=== PATIENT | female | born 1965 | race Hispanic/Latino ===

== ENCOUNTER 2017-12-20 21:36 | Emergency (ER) | payer SELFPAY ==
[2017-12-20 22:07] LABS: APPEARANCE,URINE Clear (CLEAR); BILIRUBIN,URINE Negative (NEGATIVE); COLOR,URINE Yellow (YELLOW); GLUCOSE, URINE (UA) Negative (NEGATIVE); KETONES,URINE Negative (NEGATIVE); LEUKOCYTE ESTERASE ,URINE Small (NEGATIVE); NITRATE,URINE Positive (NEGATIVE); OCCULT BLOOD,URINE Negative (NEGATIVE); PH,URINE 6.5 (5.0-8.0); PROTEIN,URINE Negative (NEGATIVE)
[2017-12-20] MEDS ORDERED: ACETAMINOPHEN-CODEINE 300/30MG TAB ONE (22:08)
[2017-12-20 22:09] LABS: BASOPHILS % (AUTO) 0.7 % (0.0-5.0); EOSINOPHILS % (AUTO) 3.3 % (0.0-8.0); HEMATOCRIT 38.8 % (36-48); LYMPHOCYTES % (AUTO) 37.5 % (21.0-51.0); MEAN CORPUSCULAR HEMOGLOBIN 32.5 pg (27.0-33.0); MEAN CORPUSCULAR HGB CONC 35.2 g/dL (32.0-36.0); MEAN CORPUSCULAR VOLUME 92.1 fL (79-99); NEUTROPHILS % (AUTO) 51.5 % (40.0-77.0); NUCLEATED RED BLOOD CELLS 0.1 % (0.0-0.19); PLATELET COUNT (AUTO) 273 K/uL (130-400); RED BLOOD CELL COUNT(AUTO) 4.21 MIL/uL (4.00-5.50); RED CELL DISTRIBUTION WIDTH 12.8 % (11.0-15.5)
[2017-12-20 22:12] LABS: RBC,URINE None Seen /HPF (0-1)
[2017-12-20 22:13] LABS: BACTERIA,URINE Many /HPF (None Seen); SQUAMOUS EPITHELIAL CELL,UR 0-2 /HPF (0-2)
[2017-12-20 22:18] LABS: CREATININE 0.9 mg/dL (0.5-1.5); POTASSIUM 4.1 mmol/L (3.5-5.1)
[2017-12-20 22:22] LABS: ALBUMIN 3.9 g/dL (3.5-5.0); BILIRUBIN,TOTAL 0.2 mg/dL (0.2-1.0); TOTAL PROTEIN, SERUM 7.8 g/dL (6.0-8.3)
[2017-12-20] MEDS ORDERED: IBUPROFEN 400 MG TABLET ONE (22:52)
[2017-12-20] MEDS ORDERED: ONDANSETRON ODT 4 MG TAB ONE (22:52)
== END 2017-12-20 23:29 | disposition home or self-care (01) ==
LOC: EDH 21:36
DX: N39.0 Urinary tract infection, site not specified (principal); M54.30 Sciatica, unspecified side
CPT/HCPCS: 36415; 80053; 81001; 83690; 85025

== ENCOUNTER 2018-08-22 15:01 | Inpatient (IN) | payer SELFPAY ==
[~2018-08-22] VITALS: Ht 154.9 cm; Wt 78.7 kg
[2018-08-22] MEDS ORDERED: METHYLPREDNISOLONE SOD SUCC 125MG/2ML VIAL ONE (15:32)
[2018-08-22] MEDS ORDERED: CEFTRIAXONE SODIUM 1 GM ONE (15:32)
[2018-08-22] MEDS ORDERED: AZITHROMYCIN 500MG+NS 250ML 250 ML IV ONE (15:32)
[2018-08-22] MEDS ORDERED: SODIUM CHLORIDE 0.9% 50 ML IV ONE (15:33)
[2018-08-22] MEDS ORDERED: ACETAMINOPHEN EXTRA STRENGTH 500 MG TABLET ONE (15:33)
[2018-08-22] MEDS ORDERED: IPRATROPIUM/ALBUTEROL SULFATE 3 ML SOLUTION IH ONE (15:39)
[2018-08-22 15:40] LABS: BASOPHILS % (AUTO) 0.3 % (0.0-5.0); EOSINOPHILS % (AUTO) 0.2 % (0.0-8.0); HEMATOCRIT 42.5 % (36-48); LYMPHOCYTES % (AUTO) 7.7 % (21.0-51.0); MEAN CORPUSCULAR HEMOGLOBIN 31.3 pg (27.0-33.0); MEAN CORPUSCULAR HGB CONC 33.9 g/dL (32.0-36.0); MEAN CORPUSCULAR VOLUME 92.4 fL (79-99); MONOCYTES % (AUTO) 7.7 % (3.0-13.0); NEUTROPHILS % (AUTO) 84.1 % (40.0-77.0); PLATELET COUNT (AUTO) 163 K/uL (130-400); RED CELL DISTRIBUTION WIDTH 12.9 % (11.0-15.5)
[2018-08-22 15:52] LABS: CREATININE 0.9 mg/dL (0.5-1.5); POTASSIUM 3.7 mmol/L (3.5-5.1)
[2018-08-22 15:54] LABS: INR 0.95 (0.85-1.15); PARTIAL THROMBOPLASTIN TIME 31.6 SEC (26.3-35.5)
[2018-08-22 15:57] LABS: BILIRUBIN,TOTAL 0.4 mg/dL (0.2-1.0); TOTAL PROTEIN, SERUM 7.7 g/dL (6.0-8.3)
[2018-08-22 16:11] LABS: CREATINE KINASE, TOTAL 134 U/L (21-232); MYOGLOBIN 36 ng/mL (10-92); TROPONIN I < 0.04 ng/mL (0.00-0.06)
[2018-08-22 16:20] LABS: APPEARANCE,URINE Clear (CLEAR); BILIRUBIN,URINE Negative (NEGATIVE); COLOR,URINE Yellow (YELLOW); GLUCOSE, URINE (UA) Negative (NEGATIVE); KETONES,URINE 15 mg/dL (NEGATIVE); LEUKOCYTE ESTERASE ,URINE Small (NEGATIVE); NITRATE,URINE Negative (NEGATIVE); OCCULT BLOOD,URINE Negative (NEGATIVE); PROTEIN,URINE Negative (NEGATIVE)
[2018-08-22 16:29] LABS: BACTERIA,URINE Moderate /HPF (None Seen); RBC,URINE 0-1 /HPF (0-1); SQUAMOUS EPITHELIAL CELL,UR Rare /HPF (0-2)
[2018-08-22] MEDS ORDERED: SODIUM CHLORIDE 0.9% 1000ML 1,000 ML IV ONE (17:07)
[2018-08-22] MEDS ORDERED: IBUPROFEN 800 MG TAB ONE (17:07)
[2018-08-22] MEDS ORDERED: ALBUTEROL SULFATE 0.083% 2.5 MG/3 ML INH IH ONE ×2 (17:34→21:13)
[2018-08-22] MEDS ORDERED: GUAIFENESIN-CODEINE 5 ML SYRUP PO PRN (19:00)
[2018-08-22] MEDS ORDERED: ACETAMINOPHEN 325 MG TAB PO PRN (19:00)
[2018-08-22] MEDS: METHYLPREDNISOLONE SOD SUCC 125MG/2ML VIAL IV SCH (19:00)
[2018-08-22 19:35] VITALS: BP 131/69
[2018-08-22] MEDS: ALBUTEROL SULFATE 0.083% 2.5 MG/3 ML INH IH SCH (21:23)
[2018-08-22] MEDS ORDERED: AZITHROMYCIN 500MG+NS 250ML 250 ML IV SCH ×2 (21:30→22:00)
[2018-08-22] MEDS: FAMOTIDINE 20MG TAB 20 MG TAB PO SCH (21:46)
[2018-08-22] MEDS: ENOXAPARIN SODIUM 30 MG/0.3 ML SQ SCH (21:47)
[2018-08-22] MEDS: SODIUM CHLORIDE 0.9% 1000ML 1,000 ML IV SCH (21:47)
[2018-08-22 23:24] VITALS: BP 106/66
[2018-08-23] MEDS: ALBUTEROL SULFATE 0.083% 2.5 MG/3 ML INH IH SCH ×6 (01:26→21:43)
[2018-08-23] MEDS: METHYLPREDNISOLONE SOD SUCC 125MG/2ML VIAL IV SCH ×2 (03:04→11:07)
[2018-08-23 03:05] VITALS: BP 128/61
[2018-08-23] MEDS: SODIUM CHLORIDE 0.9% 1000ML 1,000 ML IV SCH ×4 (05:22→22:38)
[2018-08-23 08:43] VITALS: BP 145/86
[2018-08-23] MEDS: FAMOTIDINE 20MG TAB 20 MG TAB PO SCH ×2 (09:00→20:44)
[2018-08-23] MEDS: ENOXAPARIN SODIUM 30 MG/0.3 ML SQ SCH ×2 (09:00→20:44)
--- NOTE | 2018-08-23 09:15 | NUR ---
HX OF RENAL STONES/STENT CM NOTED MENTION OF RENAL STONES IN ER RECORD, PT CONFIRMED WAS HOSPITALIZED WHEN YOUNGER; STENTS PLACED FOR OBSTRUCTION/STONES; NO FURTHER WORK UP DONE FOR KIDNIES, PER PT. WILL REFER TO KADI RN TO MENTION TO DR. Bay PT WITH CURRENT UTI/FEVER
[2018-08-23 13:36] VITALS: BP 138/80
--- NOTE | 2018-08-23 15:32 | NUR ---
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
[2018-08-23 17:56] VITALS: BP 134/78
[2018-08-23 19:10] VITALS: BP 147/71
[2018-08-23] MEDS: METHYLPREDNISOLONE SOD SUCC 40MG/ML 1ML IVP SCH (20:44)
[2018-08-23] MEDS ORDERED: LEVOFLOXACIN 500 MG/D5W 100 ML 100 ML IV SCH (21:00)
[2018-08-23 23:10] VITALS: BP 124/62
[2018-08-24] MEDS: ALBUTEROL SULFATE 0.083% 2.5 MG/3 ML INH IH SCH ×4 (01:05→15:16)
[2018-08-24 03:05] VITALS: BP 116/70
[2018-08-24] MEDS: METHYLPREDNISOLONE SOD SUCC 40MG/ML 1ML IVP SCH ×2 (03:58→12:29)
[2018-08-24] MEDS: SODIUM CHLORIDE 0.9% 1000ML 1,000 ML IV SCH ×2 (05:03→09:47)
[2018-08-24 06:59] LABS: HEMATOCRIT 38.2 % (36-48); MEAN CORPUSCULAR HEMOGLOBIN 31.6 pg (27.0-33.0); MEAN CORPUSCULAR HGB CONC 34.4 g/dL (32.0-36.0); PLATELET COUNT (AUTO) 161 K/uL (130-400); RED BLOOD CELL COUNT(AUTO) 4.15 MIL/uL (4.00-5.50); RED CELL DISTRIBUTION WIDTH 12.8 % (11.0-15.5); WHITE BLOOD COUNT (AUTO) 7.2 K/uL (4.8-10.8)
[2018-08-24 07:00] VITALS: BP 127/76
[2018-08-24 07:10] LABS: CREATININE 0.9 mg/dL (0.5-1.5); POTASSIUM 3.3 mmol/L (3.5-5.1)
[2018-08-24] MEDS: FAMOTIDINE 20MG TAB 20 MG TAB PO SCH (09:46)
[2018-08-24] MEDS: ENOXAPARIN SODIUM 30 MG/0.3 ML SQ SCH (09:47)
[2018-08-24] MEDS ORDERED: LACTULOSE 20 GM/30 ML UDCUP PO PRN (10:00)
[2018-08-24 11:00] VITALS: BP 126/77
[2018-08-24] MEDS ORDERED: PRED20TA3 PO (14:40)
[2018-08-24] MEDS ORDERED: LEVO500T2 PO (14:40)
[2018-08-24 16:00] VITALS: BP 144/85
--- NOTE | 2018-08-24 17:00 | NUR ---
DISCHARGE INSTRUCTIONS GIVEN. INSTRUCTED PATIENT TO FOLLOW UP WITH PRIMARY CARE PHYSICIAN. PRESCRIPTIONS GIVEN TO PATIENT. IV DISCONTINUED WITH INNER CANNULA INTACT. ALL QUESTIONS ANSWERED.
== END 2018-08-24 18:20 | disposition home or self-care (01) | DRG 202 ==
LOC: EDH 15:01 → EDHIP 15:02 → OBSVTOIN 15:02 → 3AH 18:50
PROVIDERS: ADMIT Internal Medicine; ATTEND Internal Medicine
DX: J20.9 Acute bronchitis, unspecified (principal); N39.0 Urinary tract infection, site not specified; E86.1 Hypovolemia; F17.210 Nicotine dependence, cigarettes, uncomplicated; R09.02 Hypoxemia; Z87.442 Personal history of urinary calculi; Z90.710 Acquired absence of both cervix and uterus
CPT/HCPCS: 36415; 71046; 76770; 80048; 80053; 81001; 82550; 83605; 83690; 83874; 84484; 85025; 85027; 85610; 85730; 87040; 87077; 87088; 87186; 87804; 87880; 93005; 94640; 94664; G0378; J0456; J0696; J1650; J1956; J2920; J2930; J7030

== ENCOUNTER 2018-11-30 18:42 | Emergency (ER) | payer OTHER ==
[~2018-11-30 18:42] MED LIST: LEVO500T2 PO; PRED20TA3 PO
[2018-11-30 19:01] LABS: APPEARANCE,URINE Clear (CLEAR); BILIRUBIN,URINE Negative (NEGATIVE); COLOR,URINE Dark Yellow (YELLOW); GLUCOSE, URINE (UA) Negative (NEGATIVE); KETONES,URINE Negative (NEGATIVE); LEUKOCYTE ESTERASE ,URINE Small (NEGATIVE); NITRATE,URINE Positive (NEGATIVE); OCCULT BLOOD,URINE Negative (NEGATIVE); PH,URINE 5.5 (5.0-8.0); PROTEIN,URINE Negative (NEGATIVE)
[2018-11-30 19:18] LABS: RBC,URINE 0-1 /HPF (0-1)
[2018-11-30 19:19] LABS: BACTERIA,URINE Rare /HPF (None Seen); SQUAMOUS EPITHELIAL CELL,UR Rare /HPF (0-2)
== END 2018-11-30 19:51 | disposition home or self-care (01) ==
LOC: EDH 18:42
DX: N39.0 Urinary tract infection, site not specified (principal); Z90.710 Acquired absence of both cervix and uterus; Z98.890 Other specified postprocedural states; Z87.442 Personal history of urinary calculi
CPT/HCPCS: 81001

== ENCOUNTER 2019-04-30 12:44 | Emergency (ER) | payer SELFPAY ==
[2019-04-30 13:02] LABS: BASOPHILS % (AUTO) 0.4 % (0.0-5.0); EOSINOPHILS % (AUTO) 2.3 % (0.0-8.0); HEMATOCRIT 41.2 % (36-48); LYMPHOCYTES % (AUTO) 24.8 % (21.0-51.0); MEAN CORPUSCULAR HEMOGLOBIN 31.9 pg (27.0-33.0); MEAN CORPUSCULAR HGB CONC 34.3 g/dL (32.0-36.0); MEAN CORPUSCULAR VOLUME 92.9 fL (79-99); MONOCYTES % (AUTO) 6.9 % (3.0-13.0); NEUTROPHILS % (AUTO) 65.6 % (40.0-77.0); PLATELET COUNT (AUTO) 184 K/uL (130-400); RED BLOOD CELL COUNT(AUTO) 4.44 MIL/uL (4.00-5.50); RED CELL DISTRIBUTION WIDTH 12.9 % (11.0-15.5); WHITE BLOOD COUNT (AUTO) 5.1 K/uL (4.8-10.8)
[2019-04-30 13:15] LABS: POTASSIUM 3.4 mmol/L (3.5-5.1)
[2019-04-30 13:19] LABS: INR 0.89 (0.85-1.15); PARTIAL THROMBOPLASTIN TIME 27.8 SEC (26.3-35.5); PROTHROMBIN TIME 9.4 SEC (9.6-11.6)
[2019-04-30 13:21] LABS: ALBUMIN 4.1 g/dL (3.5-5.0); BILIRUBIN,TOTAL 0.4 mg/dL (0.2-1.0); TOTAL PROTEIN, SERUM 7.9 g/dL (6.0-8.3)
== END 2019-04-30 16:08 | disposition home or self-care (01) ==
LOC: EDH 12:44
DX: J06.9 Acute upper respiratory infection, unspecified (principal); R07.89 Other chest pain; I10 Essential (primary) hypertension; Z98.890 Other specified postprocedural states; Z90.710 Acquired absence of both cervix and uterus; Z72.0 Tobacco use
CPT/HCPCS: 36415; 71045; 80053; 84484; 85025; 85610; 85730; 87804; 93005

== ENCOUNTER 2024-12-18 13:31 | Observation (INO) | payer BC ==
[~2024-12-18] VITALS: Ht 154.9 cm; Wt 66.1 kg
[~2024-12-18 13:31] MED LIST changes: +ACET-2079 PO
--- NOTE | 2024-12-18 14:06 | EKG ---
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
[2024-12-18 14:16] LABS: BASOPHILS # (AUTO) 0.02 K/uL (0.00-0.20); BASOPHILS % (AUTO) 0.7 % (0.0-5.0); EOSINOPHILS # (AUTO) 0.05 K/uL (0.00-0.70); EOSINOPHILS % (AUTO) 1.9 % (0.0-8.0); HEMATOCRIT 39.5 % (36-48); LYMPHOCYTES # (AUTO) 1.1 K/uL (1.0-4.8); LYMPHOCYTES % (AUTO) 40.4 % (21.0-51.0); MEAN CORPUSCULAR HGB CONC 33.2 g/dL (32.0-36.0); MEAN CORPUSCULAR VOLUME 93.6 fL (79-99); MONOCYTES # (AUTO) 0.3 K/uL (0.1-1.0); MONOCYTES % (AUTO) 10.1 % (3.0-13.0); NEUTROPHILS # (AUTO) 1.3 K/uL (1.8-7.7); NEUTROPHILS % (AUTO) 46.9 % (40.0-77.0); PLATELET COUNT (AUTO) 186 K/uL (130-400); RED BLOOD CELL COUNT(AUTO) 4.22 MIL/uL (4.00-5.50); RED CELL DISTRIBUTION WIDTH 11.9 % (11.0-15.5); WHITE BLOOD COUNT (AUTO) 2.7 K/uL (4.8-10.8)
[2024-12-18 14:26] LABS: CREATININE 0.8 mg/dL (0.5-1.0)
[2024-12-18 14:27] LABS: INR 1.03 (0.85-1.15); PROTHROMBIN TIME 10.9 SEC (9.6-11.6)
[2024-12-18 14:28] LABS: PARTIAL THROMBOPLASTIN TIME 30.4 SEC (26.3-35.5)
[2024-12-18 14:46] LABS: APPEARANCE,URINE CLEAR (CLEAR); BILIRUBIN,URINE NEGATIVE (NEGATIVE); COLOR,URINE LIGHT-YELLOW (YELLOW); GLUCOSE, URINE (UA) NEGATIVE (NEGATIVE); KETONES,URINE NEGATIVE (NEGATIVE); LEUKOCYTE ESTERASE ,URINE NEGATIVE Leu/uL (NEGATIVE); NITRATE,URINE NEGATIVE (NEGATIVE); OCCULT BLOOD,URINE NEGATIVE (NEGATIVE); PH,URINE 5.5 (5.0-8.0); PROTEIN,URINE NEGATIVE (NEGATIVE); UROBILINOGEN,URINE 0.2 mg/dL (0.2-1.0)
[2024-12-18 14:47] LABS: ADD UA MICROSCOPIC NO
[2024-12-18 15:06] LABS: B-TYPE NATRIURETIC PEPTIDE 22 pg/mL (0-100)
--- NOTE | 2024-12-18 15:09 | HMCIMG ---
Exam Type: CHEST 1VW Clinical Information: WEAKNESS Comparison: None Findings: The lungs are clear of infiltrates. The heart is normal in size. The bony and soft tissue structures of the chest are unremarkable. Impression: Clear lungs.
[2024-12-18 15:27] LABS: BAND NEUTROPHILS % (MANUAL) 1 % (0-2); LYMPHOCYTES % (MANUAL) 40 % (22-44); MAN.DIFF COMMENT-IMPRESSION MANUAL DIFFERENTIAL; MONOCYTES % (MANUAL) 5 % (2-9); SEGMENTED NEUTROPHILS % 54 % (40-70); TOTAL CELLS COUNTED 100
[2024-12-18 15:28] LABS: PLATELET MORPHOLOGY COMMENT ADEQUATE; WBC MORPHOLOGY CONSISTENT W/DIFF
[2024-12-18] MEDS: 0.9%NACL 1000ML 1,000 ML IV SCH ×2 (17:18→22:15)
[2024-12-18] MEDS: cefTRIAXone 1G VIAL IVPB SCH (17:18)
[2024-12-18] MEDS: dexaMETHasone SOD PHOSPHATE 4 MG/ML 1ML VIAL IV SCH (17:18)
[2024-12-18] MEDS: mecliZINE HCL 25 MG TABLET PO SCH (17:18)
--- NOTE | 2024-12-18 18:09 | HMCIMG ---
CT HEAD WITHOUT CONTRAST INDICATION: Vertigo TECHNIQUE: Noncontrast axial helical CT images from the vertex through the skull base using 5 mm slice thickness without contrast material. CT was performed with one or more of the following dose reduction techniques: Automated exposure control, adjustment of the mA and/or kV according to patient size, or use of iterative reconstruction technique. COMPARISON: None FINDINGS: The cerebral and cerebellar hemispheres are age-appropriate in appearance. No evidence for abnormal extra-axial fluid collections or masses. The ventricles and sulci are normal in size and configuration. No evidence for intracranial parenchymal, epidural, or subdural hemorrhage, mass effect or midline shift. The davis-white matter differentiation is well preserved. No secondary evidence to suggest acute ischemia. The brainstem and cerebellum appear normal. The visualized orbits appear unremarkable. The visible paranasal sinuses and mastoid air cells are clear. The calvarium appears normal. IMPRESSION: No acute intracranial process identified.
--- NOTE | 2024-12-18 18:34 | ERN ---
General Chief Complaint: Dizzy/Light Headed Stated Complaint: HAD STROKE 3 WKS AGO/ UNBALANCE,DIZZY,NAUSEOUS/SLU Time Seen by MD: 13:32 Source: patient History of Present Illness Initial Comments PATIENT IS A 59-YEAR-OLD FEMALE COMING IN TO BE EVALUATED FOR DIZZINESS. PATIENT STATES THAT SHE HAD A STROKE THREE WEEKS AGO AND IS PENDING TO SEE HER NEUROLOGIST. SHE STATES THAT SHE HAS BEEN FEELING DIZZY FOR A COUPLE OF DAYS. ON QUESTIONING THE PATIENT ABOUT VERTIGO VERSUS LIGHTHEADEDNESS SHE STATED SHE KNOWS THE DIFFERENCE AND SHE DOES THINK HER SYMPTOMS ARE MORE LIKELY LIGHTHEADEDNESS AND NOT VERTIGO. Timing/Duration: 24 hours Severity: mild Allergies: Coded Allergies: No Known Drug Allergies (Unverified Allergy, Unknown, 08/22/18) Home Meds Active Scripts Acetaminophen with Codeine (Acetaminophen-Cod #3 Tablet) 1 Each Tablet, 1 TAB PO TID for 5 Days, #10 TAB Prov:KAVITHA SANABRIA 02/03/21 Prednisone (Prednisone) 20 Mg Tablet, 20 MG PO DAILY for 5 Days, #5 TAB Prov:TOR GUILLEN Jr., MD 08/24/18 Levofloxacin (Levaquin) 500 Mg Tablet, 500 MG PO DAILY for 10 Days, #10 TAB Prov:TOR GUILLEN Jr., MD 08/24/18 Past Medical History Past Medical History: Heart Disease, Stroke, UTI Medical History Other: stroke three weeks ago, Past Surgical History: Hysterectomy, Surgical History Other: BLADDER LIFT Constitutional: (-) chills, (-) diaphoresis, (-) fever, (-) malaise, (-) weakness, (-) other documentation EENTM: (-) eye pain, (-) blurred vision, (-) tearing, (-) double vision, (-) ear pain, (-) ear discharge, (-) nose pain, (-) nose congestion, (-) throat pain, (-) Throat swelling, (-) mouth pain, (-) tooth pain, (-) mouth swelling, (-) other documentation Respiratory: (-) cough, (-) orthopnea, (-) short of breath, (-) stridor, (-) wheezing, (-) other documentation Cardiovascular: (-) chest pain, (-) edema, (-) palpitations, (-) syncope, (-) dyspnea on exertion, (-) other documentation Gastrointestinal/Abdominal: (+) nausea Musculoskeletal: (-) Neck pain, (-) back pain, (-) Flank Pain, (-) joint pain, (-) joint swelling, (-) muscle pain, (-) muscle stiffness, (-) gout, (-) other documentation Skin: (-) laceration, (-) contusion, (-) abrasion, (-) abscess, (-) rash, (-) change in color, (-) change in hair, (-) change in nails, (-) diaphoresis, (-) dryness, (-) other documentation Neuro: (+) weakness Physical Exam General Appearance: (+) no apparent distress Orientation: (+) alert, (+) oriented x 3 Head/Face Trauma: No Eye: bilateral eye normal inspection, bilateral eye PERRL, bilateral eye EOMI Ear, Nose, Throat: (+) hearing grossly normal, (+) normal ENT inspection, (+) moist mucous membraine Neck: (+) normal inspection, (+) supple, (+) full range of motion Respiratory: (+) chest non-tender, (+) lungs clear, (+) well ventilated Heart: (+) regular, (+) no gallop Vascular: (+) no edema, (+) normal peripheral pulse Gastrointestinal: (+) soft, (+) non-tender, (+) bowel sound present Extremities: (+) normal range of motion, (+) non-tender, (+) normal inspection, (+) no pedal edema Reflexes: Normal Skin Comment Mild tenting of the skin dorsal surface of hands Results Laboratory and Microbiology Lab and Micro Result Laboratory Tests Test 12/18/24 13:42 12/18/24 14:09 12/18/24 14:38 Whole Blood Glucose 112 MG/DL (70-110) H White Blood Count 2.7 K/uL (4.8-10.8) L Red Blood Count 4.22 MIL/uL (4.00-5.50) Hemoglobin 13.1 g/dL (12.0-16.0) Hematocrit 39.5 % (36-48) Mean Corpuscular Volume 93.6 fL (79-99) Mean Corpuscular Hemoglobin 31.0 pg (27.0-33.0) Mean Corpuscular Hemoglobin Concent 33.2 g/dL (32.0-36.0) Red Cell Distribution Width 11.9 % (11.0-15.5) Platelet Count 186 K/uL (130-400) Mean Platelet Volume 9.5 fL (7.5-10.5) Immature Granulocyte % (Auto) 0.0 % (0-1) Neutrophils (%) (Auto) 46.9 % (40.0-77.0) Lymphocytes (%) (Auto) 40.4 % (21.0-51.0) Monocytes (%) (Auto) 10.1 % (3.0-13.0) Eosinophils (%) (Auto) 1.9 % (0.0-8.0) Basophils (%) (Auto) 0.7 % (0.0-5.0) Neutrophils # (Auto) 1.3 K/uL (1.8-7.7) L Lymphocytes # (Auto) 1.1 K/uL (1.0-4.8) Monocytes # (Auto) 0.3 K/uL (0.1-1.0) Eosinophils # (Auto) 0.05 K/uL (0.00-0.70) Basophils # (Auto) 0.02 K/uL (0.00-0.20) Absolute Immature Granulocyte (auto 0.00 K/uL (0-1) Segmented Neutrophils % 54 % (40-70) Band Neutrophils % 1 % (0-2) Lymphocytes % (Manual) 40 % (22-44) Monocytes % (Manual) 5 % (2-9) Nucleated Red Blood Cells 0.0 % (0.0-0.19) Differential Comment MANUAL DIFFERENTIAL White Cell Morphology Comment CONSISTENT W/DIFF Platelet Morphology Comment ADEQUATE Red Blood Cell Morphology ANISO 1+ Prothrombin Time 10.9 SEC (9.6-11.6) Prothromb Time International Ratio 1.03 (0.85-1.15) Activated Partial Thromboplast Time 30.4 SEC (26.3-35.5) Sodium Level 143 mmol/L (136-145) Potassium Level 4.0 mmol/L (3.5-5.1) Chloride Level 106 mmol/L (101-111) Carbon Dioxide Level 27 mmol/L (21-32) Blood Urea Nitrogen 19 mg/dL (7-18) H Creatinine 0.8 mg/dL (0.5-1.0) Glomerular Filtration Rate Calc 84 mL/min (>90) Random Glucose 96 mg/dL (70-105) Total Calcium 9.1 mg/dL (8.5-10.1) Magnesium Level 2.00 mg/dL (1.80-2.40) Total Creatine Kinase 167 U/L (21-232) # Troponin I High Sensitivity < 4 ng/L (4-50) L B-Type Natriuretic Peptide 22 pg/mL (0-100) Triglycerides Level 163 mg/dL (30-200) Cholesterol Level 169 mg/dL (<200) LDL Cholesterol 96 mg/dL (0-99) HDL Cholesterol 53 mg/dL (35-85) Urine Color LIGHT-YELLOW (YELLOW) Urine Appearance CLEAR (CLEAR) Urine pH 5.5 (5.0-8.0) Urine Specific [place] 1.018 (1.001-1.031) Urine Protein NEGATIVE mg/dL (NEGATIVE) Urine Glucose (UA) NEGATIVE mg/dL (NEGATIVE) Urine Ketones NEGATIVE mg/dL (NEGATIVE) Urine Occult Blood NEGATIVE (NEGATIVE) Urine Nitrate NEGATIVE (NEGATIVE) Urine Bilirubin NEGATIVE mg/dL (NEGATIVE) Urine Urobilinogen 0.2 mg/dL (0.2-1.0) Urine Leukocyte Esterase NEGATIVE Justine/uL Labs Reviewed?: Yes EKG/XRAY/US/CT/MRI EKG Comment 12/18/2024 TIME 2:03 P.M. VENTRICULAR RATE 63 SINUS RHYTHM [place] [address] WAVE ELEVATION OR DEPRESSION X-RAY Comment [address] [address] IMAGING REPORT Signed PATIENT: KANDY DURAN MR#: [id number] : 1965 SEX: F AGE: 59 LOCATION: ED ORDER [id number] STATUS: REG ER REPORT#: [id number] SERVICE 1358 REASON: WEAKNESS ORDERING PHYSICIAN: MILDRED DURAN MD PROCEDURE: CXR1VW - CHEST 1VW Exam Type: CHEST 1VW Clinical Information: WEAKNESS Comparison: None Findings: The lungs are clear of infiltrates. The heart is normal in size. The bony and soft tissue structures of the chest are unremarkable. Impression: Clear lungs. DICTATED BY: ALEJO ENRIQUEZ MD DATE: 12/18/241505 ELECTRONICALLY SIGNED BY: ALEJO ENRIQUEZ MD DATE: 12/18/241508 CT Scan Comment [address] [place] [address] IMAGING REPORT Signed PATIENT: KANDY DURAN MR#: [id number] : 1965 SEX: F AGE: 59 LOCATION: EDH ORDER [id number] STATUS: [facility] ER REPORT#: [id number] SERVICE 55 REASON: VERTIGO ORDERING PHYSICIAN: MILDRED DURAN MD PROCEDURE: HEAD WO - CT HEAD/BRAIN W/O CONTRAST CT HEAD WITHOUT CONTRAST INDICATION: Vertigo TECHNIQUE: Noncontrast axial helical CT images from the vertex through the skull base using 5 mm slice thickness without contrast material. CT was performed with one or more of the following dose reduction techniques: Automated exposure control, adjustment of the mA and/or kV according to patient size, or use of iterative reconstruction technique. COMPARISON: None FINDINGS: The cerebral and cerebellar hemispheres are age-appropriate in appearance. No evidence for abnormal extra-axial fluid collections or masses. The ventricles and sulci are normal in size and configuration. No evidence for intracranial parenchymal, epidural, or subdural hemorrhage, mass effect or midline shift. The davis-white matter differentiation is well preserved. No secondary evidence to suggest acute ischemia. The brainstem and cerebellum appear normal. The visualized orbits appear unremarkable. The visible paranasal sinuses and mastoid air cells are clear. The calvarium appears normal. IMPRESSION: No acute intracranial process identified. DICTATED BY: NIKITA FAM MD DATE: 12/18/241806 ELECTRONICALLY SIGNED BY: NIKITA FAM MD DATE: 12/18/241808 [facility] MDM: DIFFERENTIAL DIAGNOSIS: CVA, VERTIGO, SINUSITIS, RATIONALE: TESTS CONSIDERED AND ORDERED SECONDARY TO SHARED DECISION MAKING INCLUDE: LABS, ECG AND RADIOLOGY PREVIOUS OUTSIDE RECORDS REVIEWED: OLD ER VISITS. RISK OF COMPLICATION AND/OR MORBIDITY OR MORTALITY OF PATIENT MANAGEMENT: NONE MEDICATIONS-PER MEDICATION RECONCILIATION NEED FOR HOSPITALIZATION: PATIENT DOES MEET CRITERIA FOR HOSPITALIZATION. NEED FOR EMERGENCY MAJOR/MINOR SURGERY: NO THERE ARE NO SOCIAL CONCERNS WITH THIS PATIENT. PRESCRIPTION DRUG MANAGEMENT PRESCRIPTIONS WILL INCLUDE SYMPTOMATIC CARE PATIENT'S PRIOR EXTERNAL MEDICAL RECORDS FROM OTHER ER VISITS WERE REVIEWED BY ME INDICATED. PRIOR TESTING AND RESULTS FROM PREVIOUS VISITS WERE REVIEWED. PRIOR TESTS WERE TAKEN INTO ACCOUNT WITH MEDICAL DECISION MAKING AND RESOURCE UTILIZATION, INDEPENDENT HISTORIAN/HISTORIANS WERE USED TO OBTAIN COMPLETE MEDICAL HISTORY. I INDEPENDENTLY INTERPRETED THE TEST THAT WERE PERFORMED, RESULTS WERE REVIEWED BY ME AND CONSIDERED FINDINGS ON RADIOLOGY IF ORDERED. MEDICAL MANAGEMENT AND EXAMINATION INTERPRETATION DISCUSSIONS WERE HAD BY ME WITH OTHER QUALIFIED HEALTHCARE PROFESSIONALS INDICATED FOR THE PATIENT'S CARE. Tele neurology has interviewed the patient. They would like to admit the patient for a noncontrast MRI and observation. Patient's family also wanted to check for vitamin D3 levels. Discussed the patient with the hospitalist and they have agreed to accept the patient to their service. I have also ordered the vitamin D3 levels. ED Course Orders Procedure Category Date Status Time Cbc With Differential LAB 12/18/24 Complete 13:57 Prothrombin Time With LAB 12/18/24 Complete INR 13:57 B-Type Natriuretic LAB 12/18/24 Complete Peptide 13:57 Lipid Panel LAB 12/18/24 Complete 13:57 Chest 1vw RAD 12/18/24 Resulted 13:57 12 Lead Ekg Tracing- EKG 12/18/24 Resulted Technical 13:57 Magnesium LAB 12/18/24 Complete 13:57 Creatine Kinase, Total LAB 12/18/24 Complete 13:57 Troponin I High LAB 12/18/24 Complete Sensitivity 13:57 Urinalysis Profile LAB 12/18/24 Complete 13:57 Partial LAB 12/18/24 Complete Thromboplastin Time 13:57 Basic Metabolic Panel LAB 12/18/24 Complete 13:57 Manual Differential LAB 12/18/24 Complete 14:09 Ct Head/Brain W/O CT 12/18/24 Resulted Contrast 16:56 0.9%Nacl 1000ml (Ns PHA 12/18/24 In Process 1000ml) 17:00 Ceftriaxone 1g Vial PHA 12/18/24 In Process (Rocephine 1g Inj) 17:00 Meclizine Hcl 25 Mg PHA 12/18/24 In Process (Antivert 25 Mg) 17:00 Dexamethasone 4mg/Ml PHA 12/18/24 In Process 1ml Vial (Dexametha 17:00 Current Medications Medications (Trade) Dose Ordered Sig/Bal Route PRN Reason Start Time Stop Time Status Last Admin Dose Admin Ceftriaxone Sodium (ROCEphine 1G INJ) 1 gm ONCE IVPB 12/18/24 17:00 12/18/24 21:00 12/18/24 17:18 Dexamethasone Sodium Phosphate (dexaMETHasone 4MG/ML 1ML VIAL) 4 mg ONCE IV 12/18/24 17:00 12/18/24 21:00 12/18/24 17:18 Meclizine HCl (ANTIvert 25 mg) 25 mg ONCE PO 12/18/24 17:00 12/18/24 21:00 12/18/24 17:18 Sodium Chloride 1,000 ml @ 0 mls/hr ONCE IV 12/18/24 17:00 12/18/24 21:00 12/18/24 17:18 Vital Signs Date Time Temp Pulse Resp B/P (MAP) Pulse Ox O2 Delivery O2 Flow Rate FiO2 12/18/24 19:46 98.4 59 18 147/80 98 Room Air* 0 12/18/24 18:30 98.4 59 18 110/62 100 Room Air* 0 12/18/24 17:00 98.4 65 18 108/65 97 Room Air* 0 12/18/24 15:24 98.6 62 18 102/60 98 Room Air* 0 12/18/24 14:18 62 18 102/64 96 Room Air* 0 12/18/24 13:56 99.0 70 16 126/72 98 Room Air 0 DX & DISP Disposition: Inpatient Departure Impression: Primary Impression: CVA (cerebral vascular accident) Additional Impression: Sinusitis Condition: Stable Referrals: CASSIA FOSTER MD (PCP) MILDRED DURAN MD December 18, 2024 18:34 CATHERINE LAM MD December 18, 2024 19:29
--- NOTE | 2024-12-18 19:35 | NUR ---
NEURO ASSESMENT DONE BY TELENEURO, WHO SPOKE WITH FAMILY AND PT AND ADVISED THAT PT IS LIKELY HAS VERTIGO BUT WILL BE KEPT IN HOUSE FOR A MRI TO R/O TIA/CVA
--- NOTE | 2024-12-18 20:29 | CONS ---
CONSULT NOTE: [facility] Note # Demographics Consult Type: General Neurology Patient Location: Emergency Room First Name: KANDY Last Name: RENEE Date of : 1965 Age: 59 Gender: Female Facility: [facility] Time of Initial Page (Central Time): 12/18/2024 18:46 Time of Return Call (Central Time): 12/18/2024 18:48 # HPI History: Patient had recent diagnosis of stroke 3 weeks ago; she initially had dizziness and had recurrence of vertigo 2 days ago. On Apixiban- H/O A-fib; previous stroke- residual left sided weakness. # Scores Time of exam and NIHSS (Central Time): 12/18/2024 19:22 Level of Consciousness 1a: [0] = Alert; keenly responsive LOC Questions 1b: [0] = Answers both questions correctly LOC Commands 1c: [0] = Performs both tasks correctly Best Gaze 2: [0] = Normal Visual 3: [0] = No visual loss Facial Palsy 4: [0] = Normal symmetrical movements Motor Arm Left 5a: [1] = Drift Motor Arm Right 5b: [0] = No drift Motor Leg Left 6a: [1] = Drift Motor Leg Right 6b: [0] = No drift Limb Ataxia 7: [0] = Absent Sensory 8: [0] = Normal Best Language 9: [0] = No aphasia Dysarthria 10: [1] = Nqee-sh-deboyhdd dysarthria Extinction and Inattention 11: [0] = No abnormality NIHSS Total: 3 # Assessment Impression: - Vertigo - Ischemic Stroke (Acute) - Stroke Mimic NIHSS is 3; has residual left hemiparesis from previous stroke; differential include peripheral vs central etiology. Will need MRI brain to rule out stroke # Plan Thrombolytic/Intervention: NOT IV Thrombolysis or IA Intervention candidate Thrombolytic Exclusion (< 3 hour window): - other (see below) Thrombolytic Exclusion: - > 4.5 hours recrudescence of previous stroke Intraarterial Exclusion: - no large vessel occlusion (LVO) Thrombolytic/Intraarterial Exclusion: - IV thrombolytic and IA intervention considered but not recommended as this patient's symptoms are not clinically consistent with an assumed diagnosis of stroke Target Blood Pressure: - SBP < 180 - SBP > 140 Labs: - comprehensive metabolic panel - CBC - ua - ESR - hemoglobin A1c - lipid panel - TSH - troponin Imaging: (urgency: routine): - MRI Brain without contrast Therapy/Evaluation: - PT/OT evaluation -If brain MRI is negative for stroke- consider madi-hallpike maneuver Medication: - anticoagulation with NOAC - start statin with goal of LDL < 70 PRN meclizine Other: - If patient has any neurological deterioration please call me back immediately - I have discussed my recommendations with the referring provider - neurology referral as outpatient - would not pursue stroke work-up if MRI is negative - telemetry monitoring - permissive hypertension - LDL < 70 Disposition: admit # Logistics Attestation of consult completion: The patient is located at: [facility]. Facility staff participated in the visit. I performed this telemedicine visit from my offsite office utilizing interactive 2 way audio and visual telecommunication technology. Total time spent in telemedicine encounter: I spent 10 minutes reviewing c linical data and/or imaging, obtaining history, examining the patient, communicating with the onsite care team, and in preparation of this report. # Demographics First Name: KANDY Last Name: RENEE Facility: [facility] MIGUEL ÁNGEL ADAN MD December 18, 2024 20:29
--- NOTE | 2024-12-18 21:44 | HP ---
[facility] HISTORY [facility] PHYSICAL Date of Service: December 18, 2024 Time of Service: 21:07 PCP: Ziggy Johnson HISTORY OF PRESENT ILLNESS: This is a 59-year-old female with past medical history of heart disease, stroke,hyperlipidemia and renal stone who presents to the Ed for complaints of dizziness which started 2 days ago and that she accidentally hit her right forehead on the wall this morning because she felt dizzy but denies loss of consciousness or fall,however patient states she is on Eliquis for atrial fibrillation that was found recently on her [place] [facility] [place] said and last dose taken was this morning.Patient states she had a stroke 3 weeks ago ,she developed left sided weakness with slurred speech and was confined at [facility] [place] and was discharged on Wednesday12/12/2024. Seen and examined patient in the ER,awake,alert and coherent.Patient states she still feels dizzy and dizziness is being triggered with sudden head movement associated with nausea but no vomiting.Patient denies ringing or fullness of the ear and denies loss of consciousness.Patient denies chest pain,palpitation and shortness of breath. Latest vital signs temperature 98.4, heart rate 59, blood pressure 147/80 saturation 98% on room air. Labs: WBC 2.7 neutrophils 1.3 the rest of CBC results are unremarkable. Sodium 143, BUN 19, creatinine 0.8, GFR 84, glucose 96, troponin less than four BNP 22. Urinalysis is normal. ECG result revealed sinus rhythm heart rate 63 with low voltage precordial leads. Chest x-ray result is normal. CT head without contrast result is unremarkable.While in the ER ,a teleneurology was consulted and evaluated the patient in the ER per ER physician and patient had an NIHS score of 3 with an impresswion of Vertigo,Ischemic stroke and stroke mimic and recommended to do MRI brain to rule out stroke. We will admit patient for further medical management. REVIEW OF SYSTEMS CONSTITUTIONAL: Denies fevers, chills, or night sweats. No unintentional weight loss reported. NEUROLOGICAL: Denies headache, amaurosis fugax, motor weakness, sensory deficit, vertigo/spinning sensation, gait abnormalities, or tremors. ENT: No hearing loss, otalgia, otorrhea, rhinitis, rhinorrhea, hoarseness, or sore throat. CARDIOVASCULAR: Denies any exertional angina, dyspnea on exertion, orthopnea, paroxysmal nocturnal dyspnea, palpitations, life-threatening arrhythmias, claudication. PULMONARY: Denies any shortness of breath, cough, phlegm/sputum, hemoptysis, pleuritic chest pain. SLEEP: Denies morning headaches, daytime somnolence or napping. Denies difficulty falling asleep, staying asleep, waking from sleep. Denies knowledge of snoring. GASTROINTESTINAL: Denies any type of dysphagia to either liquids or solids. Denies nausea, vomiting, pyrosis, early satiety, abdominal pain, diarrhea, constipation, or changes in stool consistency or caliber. Denies coffee-ground emesis, hematemesis, hematochezia, or melanotic stools. GENITOURINARY: Denies frequency, urgency, nocturia, hematuria or incontinence (Storage/Irritative symptoms.) Low urinary stream, straining to void, urinary intermittency or hesitancy, splitting of the voiding stream, terminal dribbling. ENDOCRINOLOGIC: Denies polyuria, polydipsia, polyphagia or heat/cold intolerances. HEMATOLOGIC: Denies thrombophilia/previous clots, or coagulopathy/bleeding disorders. ONCOLOGIC: Denies personal history of malignancy. DERMATOLOGIC: Denies rashes or pruritus. PSYCHIATRIC: Denies any suicidal or homicidal ideation. Denies hallucinations. PAST MEDICAL HISTORY: [ heart disease, Stroke, Renal stone and hyperlipidemia] PAST SURGICAL HISTORY: [Number lift, x1 and hysterectomy ] PAST SOCIAL HISTORY: [ Patient denies cigarette and recreational drug use. Patient admits to occasional beer drinking quit one month ago] FAMILY HISTORY: [Cancer ] Coded Allergies: No Known Drug Allergies (Unverified Allergy, Unknown, 08/22/18) PHYSICAL EXAM GENERAL APPEARANCE: The patient is awake, alert, and oriented, in no acute cardiopulmonary distress. NEUROLOGICAL: Cranial nerves II-XII grossly intact. Motor is L4 /R5 in bilateral upper and lower extremities proximal to distal. No sensory deficits. HEENT: Face is symmetric. Pupils are equal and reactive. Extraocular movements are intact. NECK: Supple. No JVD. No thyromegaly. No submental, submandibular, pre- /postauricular, occipital or supraclavicular lymphadenopathy. CHEST: Normal chest expansion. No Telemetry. LUNGS: Absence of any rales, rhonchi or any wheezing. CARDIOVASCULAR: Regular. S1 and S2 normal. No appreciable rubs, murmurs or gallops. ABDOMEN: Soft, nontender, and nondistended. There is no rebound, voluntary guarding, or rigidity. : Deferred. No Hill. EXTREMITIES: Non-edematous and not cyanotic. No clubbing. Good capillary refill. SKIN: No skin breakdown. Vital Sign (Last 24 Hours) 12/18/24 19:46 Temp 98.4 Pulse 59 Resp 18 B/P (MAP) 147/80 Pulse Ox 98 O2 Delivery Room Air* O2 Flow Rate 0 FiO2 21 LABS: Laboratory: Test 12/18/24 14:38 12/18/24 14:09 12/18/24 13:42 Range/Units Urine Color LIGHT-YELLOW YELLOW Urine Appearance CLEAR CLEAR Urine pH 5.5 5.0-8.0 Urine Specific [place] 1.018 1.001-1.031 Urine Protein NEGATIVE NEGATIVE mg/dL Urine Glucose (UA) NEGATIVE NEGATIVE mg/dL Urine Ketones NEGATIVE NEGATIVE mg/dL Urine Occult Blood NEGATIVE NEGATIVE Urine Nitrate NEGATIVE NEGATIVE Urine Bilirubin NEGATIVE NEGATIVE mg/dL Urine Urobilinogen 0.2 0.2-1.0 mg/dL Urine Leukocyte Esterase NEGATIVE NEGATIVE Justine/uL White Blood Count 2.7 L 4.8-10.8 K/uL Red Blood Count 4.22 4.00-5.50 MIL/uL Hemoglobin 13.1 12.0-16.0 g/dL Hematocrit 39.5 36-48 % Mean Corpuscular Volume 93.6 79-99 fL Mean Corpuscular Hemoglobin 31.0 27.0-33.0 pg Mean Corpuscular Hemoglobin Concent 33.2 32.0-36.0 g/dL Red Cell Distribution Width 11.9 11.0-15.5 % Platelet Count 186 130-400 K/uL Mean Platelet Volume 9.5 7.5-10.5 fL Immature Granulocyte % (Auto) 0.0 0-1 % Neutrophils (%) (Auto) 46.9 40.0-77.0 % Lymphocytes (%) (Auto) 40.4 21.0-51.0 % Monocytes (%) (Auto) 10.1 3.0-13.0 % Eosinophils (%) (Auto) 1.9 0.0-8.0 % Basophils (%) (Auto) 0.7 0.0-5.0 % Neutrophils # (Auto) 1.3 L 1.8-7.7 K/uL Lymphocytes # (Auto) 1.1 1.0-4.8 K/uL Monocytes # (Auto) 0.3 0.1-1.0 K/uL Eosinophils # (Auto) 0.05 0.00-0.70 K/uL Basophils # (Auto) 0.02 0.00-0.20 K/uL Absolute Immature Granulocyte (auto 0.00 0-1 K/uL Segmented Neutrophils % 54 40-70 % Band Neutrophils % 1 0-2 % Lymphocytes % (Manual) 40 22-44 % Monocytes % (Manual) 5 2-9 % Nucleated Red Blood Cells 0.0 0.0-0.19 % Differential Comment MANUAL DIFFERENTIAL White Cell Morphology Comment CONSISTENT W/DIFF Platelet Morphology Comment ADEQUATE Red Blood Cell Morphology ANISO 1+ Prothrombin Time 10.9 9.6-11.6 SEC Prothromb Time International Ratio 1.03 0.85-1.15 Activated Partial Thromboplast Time 30.4 26.3-35.5 SEC Sodium Level 143 136-145 mmol/L Potassium Level 4.0 3.5-5.1 mmol/L Chloride Level 106 101-111 mmol/L Carbon Dioxide Level 27 21-32 mmol/L Blood Urea Nitrogen 19 H 7-18 mg/dL Creatinine 0.8 0.5-1.0 mg/dL Glomerular Filtration Rate Calc 84 >90 mL/min Random Glucose 96 70-105 mg/dL Total Calcium 9.1 8.5-10.1 mg/dL Magnesium Level 2.00 1.80-2.40 mg/dL Total Creatine Kinase 167 # 21-232 U/L Troponin I High Sensitivity < 4 L 4-50 ng/L B-Type Natriuretic Peptide 22 0-100 pg/mL Triglycerides Level 163 30-200 mg/dL Cholesterol Level 169 <200 mg/dL LDL Cholesterol 96 0-99 mg/dL HDL Cholesterol 53 35-85 mg/dL Whole Blood Glucose 112 H 70-110 MG/DL Current Medications Medications (Trade) Dose Ordered Sig/Bal Route PRN Reason Start Time Stop Time Status Last Admin Dose Admin Ceftriaxone Sodium (ROCEphine 1G INJ) 1 gm ONCE IVPB 12/18/24 17:00 12/18/24 21:00 DC 12/18/24 17:18 1 GM Dexamethasone Sodium Phosphate (dexaMETHasone 4MG/ML 1ML VIAL) 4 mg ONCE IV 12/18/24 17:00 12/18/24 21:00 DC 12/18/24 17:18 4 MG Meclizine HCl (ANTIvert 25 mg) 25 mg ONCE PO 12/18/24 17:00 12/18/24 21:00 DC 12/18/24 17:18 25 MG Sodium Chloride 1,000 ml @ 0 mls/hr ONCE IV 12/18/24 17:00 12/18/24 21:00 DC 12/18/24 17:18 1,000 MLS/HR DIAGNOSTICS / RADIOLOGY: [ ] ASSESSMENT: Possible benign paroxysmal positional vertigo POA Stroke mimic symptoms POA Acute ischemic stroke POA History of atrial fibrillation on Eliquis POA History of hyperlipidemia POA History of renal stones POA History of recent stroke POA PLAN: We will admit patient in PCCU We will keep patient nothing by mouth We will start NS @ 75 ml / hr x1 bag and re evaluate We will start on Famotidine 20 mg IV bid for GI prophylaxis We will replace electrolytes as needed per protocol We will add prn medication for fever,pain,cough , nausea and vomiting We will request neuro check per nursing NIH score Q shift and p.r.n. We will request bedside swallow per speech therapy We will request PT eval We will request case management Follow-up MRI result, if negative consider Hallpike maneuver per neuro recommendation We will request labs in am Further orders to follow depending on above results Case discussed with attending physician and came up with above treatment and plan of care. ADVANCED CARE PLANNING 1. Which of the following were discussed? Hospice Care - No Therapeutic options - Yes Advance Directives - No Other discussions - 2. Discussed with who? Patient 3. Voluntary nature of this service was explained to the patient? Yes 4. Amount of time spent - 22 5. Reviewed by Physician? (if this service was performed by NPP) Yes Patient seen and examined by me. Agree with note by HANDICAPPED TEACHER SEE ADDITIONAL ORDERS PER CHART DISCUSSED WITH NURSING STAFF DONITA ZAMORANO [employer]LO[employer] REFINISHER December 18, 2024 21:44
[2024-12-18] MEDS ORDERED: ondanSETRON 4MG INJ IV PRN (22:00)
[2024-12-18] MEDS ORDERED: PoTASSium chloRIDE 20MEQ/100ML 100 ML IV PRN (22:00)
[2024-12-19 00:40] VITALS: O2SAT 99
[2024-12-19 00:45] VITALS: BP 137/74; PULSE 68; RESP 18; TEMP 97.9
[2024-12-19 01:55] LABS: HEMOGLOBIN A1C 5.3 % (4.0-6.0)
[2024-12-19] MEDS ORDERED: APIX5TAB PO (03:07)
[2024-12-19 04:00] VITALS: BP 132/75; PULSE 56; RESP 18; TEMP 98
[2024-12-19] MEDS: mecliZINE HCL 25 MG TABLET PO ONE (04:11)
[2024-12-19 04:31] LABS: HEMATOCRIT 38.8 % (36-48); IMMATURE GRANULOCYTE ABSOLUTE 0.01 K/uL (0-1); LYMPHOCYTES # (AUTO) 0.8 K/uL (1.0-4.8); LYMPHOCYTES % (AUTO) 23.1 % (21.0-51.0); MEAN CORPUSCULAR HEMOGLOBIN 31.4 pg (27.0-33.0); MEAN CORPUSCULAR VOLUME 92.4 fL (79-99); MONOCYTES # (AUTO) 0.2 K/uL (0.1-1.0); MONOCYTES % (AUTO) 6.1 % (3.0-13.0); NEUTROPHILS # (AUTO) 2.6 K/uL (1.8-7.7); NEUTROPHILS % (AUTO) 70.5 % (40.0-77.0); PLATELET COUNT (AUTO) 200 K/uL (130-400); RED CELL DISTRIBUTION WIDTH 11.8 % (11.0-15.5); WHITE BLOOD COUNT (AUTO) 3.6 K/uL (4.8-10.8)
[2024-12-19 04:54] LABS: ALBUMIN 3.5 g/dL (3.5-5.0); BILIRUBIN,TOTAL 0.3 mg/dL (0.2-1.0); CREATININE 0.7 mg/dL (0.5-1.0); MAGNESIUM 1.8 mg/dL (1.80-2.40); POTASSIUM 4.3 mmol/L (3.5-5.1); THYROID STIMULATING HORMONE 0.35 uIU/mL (0.36-3.74); TOTAL PROTEIN, SERUM 6.9 g/dL (6.0-8.3)
[2024-12-19] MEDS: MAGNESIUM 2GM PREMIX 50ML 50 ML IV PRN (05:23)
[2024-12-19 05:37] LABS: ERYTHROCYTE SEDIMENTATION RATE 20 MM/HR (0-30)
[2024-12-19 08:00] VITALS: BP 157/82; PULSE 62; RESP 17; TEMP 97.5
[2024-12-19] MEDS: FAMOTIDINE 20MG VIAL IV SCH (08:49)
[2024-12-19] MEDS: APIXaban 5 MG TABLET PO SCH (08:49)
[2024-12-19] MEDS ORDERED: LORazepam 2 MG/ML 1 ML VIAL IVP ONE (09:00)
--- NOTE | 2024-12-19 09:42 | PN ---
[facility] PROGRESS NOTE Date of Service: December 19, 2024 Time of Service: 09:37 SUBJECTIVE: [ ] This is a 59-year-old female with past medical history of heart disease, stroke,hyperlipidemia and renal stone who presented to the Ed for complaints of dizziness which started 2 days ago. Because of dizziness, she hit the right forehead on a wall, patient taking Eliquis for atrial fibrillation, prescribed on her recent hospitalization at [facility]. Patient stated she had a stroke 3 weeks ago ,she developed left sided weakness with slurred speech and was [place] [facility] and was discharged on Wednesday12/12/2024. Seen and examined patient in the ER,awake,alert and coherent.Patient states she still feels dizzy and dizziness is being triggered with sudden head movement associated with nausea but no vomiting. In the emergency room Latest vital signs temperature 98.4, heart rate 59, blood pressure 147/80 saturation 98% on room air. Labs: WBC 2.7 neutrophils 1.3 the rest of CBC results are unremarkable. Sodium 143, BUN 19, creatinine 0.8, GFR 84, glucose 96, troponin less than four BNP 22. Urinalysis is normal. ECG result revealed sinus rhythm heart rate 63 with low voltage precordial leads. Chest x-ray result is normal. CT head without contrast result is unremarkable. While in the ER ,a teleneurology was consulted and evaluated the patient in the ER per ER physician and patient had an NIHS score of 3 with an impression of Vertigo,Ischemic stroke and stroke mimic and recommended to do MRI brain to rule out stroke. 12/19 patient remains hemodynamically stable, BP 157/82 afebrile, saturating normal on room air, discussed with the RN, scheduled for brain MRI today. Remains admitted to the PCU Continue gambling monitor Patient with a history of ischemic stroke secondary to atrial fibrillation, continue Eliquis Scheduled for brain MRI today Patient back in the room from having brain MRI, no acute findings, plan to discharge home today. REVIEW OF SYSTEMS CONSTITUTIONAL: Denies fevers, chills, or night sweats. No unintentional weight loss reported. NEUROLOGICAL: Denies headache, amaurosis fugax, motor weakness, sensory deficit, vertigo/spinning sensation, gait abnormalities, or tremors. ENT: No hearing loss, otalgia, otorrhea, rhinitis, rhinorrhea, hoarseness, or sore throat. CARDIOVASCULAR: Denies any exertional angina, dyspnea on exertion, orthopnea, paroxysmal nocturnal dyspnea, palpitations, life-threatening arrhythmias, claudication. PULMONARY: Denies any shortness of breath, cough, phlegm/sputum, hemoptysis, pleuritic chest pain. SLEEP: Denies morning headaches, daytime somnolence or napping. Denies difficulty falling asleep, staying asleep, waking from sleep. Denies knowledge of snoring. GASTROINTESTINAL: Denies any type of dysphagia to either liquids or solids. Denies nausea, vomiting, pyrosis, early satiety, abdominal pain, diarrhea, constipation, or changes in stool consistency or caliber. Denies coffee-ground emesis, hematemesis, hematochezia, or melanotic stools. GENITOURINARY: Denies frequency, urgency, nocturia, hematuria or incontinence (Storage/Irritative symptoms.) Low urinary stream, straining to void, urinary intermittency or hesitancy, splitting of the voiding stream, terminal dribbling. ENDOCRINOLOGIC: Denies polyuria, polydipsia, polyphagia or heat/cold intolerances. HEMATOLOGIC: Denies thrombophilia/previous clots, or coagulopathy/bleeding disorders. ONCOLOGIC: Denies personal history of malignancy. DERMATOLOGIC: Denies rashes or pruritus. PSYCHIATRIC: Denies any suicidal or homicidal ideation. Denies hallucinations. PHYSICAL EXAM GENERAL APPEARANCE: The patient is awake, alert, and oriented, in no acute cardiopulmonary distress. NEUROLOGICAL: Cranial nerves II-XII grossly intact. Motor is L4 /R5 in bilateral upper and lower extremities proximal to distal. No sensory deficits. HEENT: Face is symmetric. Pupils are equal and reactive. Extraocular movements are intact. NECK: Supple. No JVD. No thyromegaly. No submental, submandibular, pre- /postauricular, occipital or supraclavicular lymphadenopathy. CHEST: Normal chest expansion. No Telemetry. LUNGS: Absence of any rales, rhonchi or any wheezing. CARDIOVASCULAR: Regular. S1 and S2 normal. No appreciable rubs, murmurs or gallops. ABDOMEN: Soft, nontender, and nondistended. There is no rebound, voluntary guarding, or rigidity. : Deferred. No Hill. EXTREMITIES: Non-edematous and not cyanotic. No clubbing. Good capillary refill. SKIN: No skin breakdown. Vital Signs (last 8hr) Date Time Temp Pulse Resp B/P (MAP) Pulse Ox O2 Delivery O2 Flow Rate FiO2 12/19/24 08:00 97.5 62 17 157/82 100 Room Air 12/19/24 04:00 98.1 56 18 132/75 96 Room Air LABS: Laboratory: Test 12/19/24 04:23 12/18/24 14:38 12/18/24 14:09 12/18/24 13:42 Range/Units White Blood Count 3.6 #L 4.8-10.8 K/uL Red Blood Count 4.20 4.00-5.50 MIL/uL Hemoglobin 13.2 12.0-16.0 g/dL Hematocrit 38.8 36-48 % Mean Corpuscular Volume 92.4 79-99 fL Mean Corpuscular Hemoglobin 31.4 27.0-33.0 pg Mean Corpuscular Hemoglobin Concent 34.0 32.0-36.0 g/dL Red Cell Distribution Width 11.8 11.0-15.5 % Platelet Count 200 130-400 K/uL Mean Platelet Volume 9.9 7.5-10.5 fL Immature Granulocyte % (Auto) 0.3 0-1 % Neutrophils (%) (Auto) 70.5 40.0-77.0 % Lymphocytes (%) (Auto) 23.1 21.0-51.0 % Monocytes (%) (Auto) 6.1 3.0-13.0 % Eosinophils (%) (Auto) 0.0 0.0-8.0 % Basophils (%) (Auto) 0.0 0.0-5.0 % Neutrophils # (Auto) 2.6 1.8-7.7 K/uL Lymphocytes # (Auto) 0.8 L 1.0-4.8 K/uL Monocytes # (Auto) 0.2 0.1-1.0 K/uL Eosinophils # (Auto) 0.00 0.00-0.70 K/uL Basophils # (Auto) 0.00 0.00-0.20 K/uL Absolute Immature Granulocyte (auto 0.01 0-1 K/uL Nucleated Red Blood Cells 0.0 0.0-0.19 % Erythrocyte Sedimentation Rate 20 0-30 MM/HR Sodium Level 140 136-145 mmol/L Potassium Level 4.3 3.5-5.1 mmol/L Chloride Level 106 101-111 mmol/L Carbon Dioxide Level 25 21-32 mmol/L Blood Urea Nitrogen 13 7-18 mg/dL Creatinine 0.7 0.5-1.0 mg/dL Glomerular Filtration Rate Calc 98 >90 mL/min Random Glucose 131 H 70-105 mg/dL Total Calcium 8.1 L 8.5-10.1 mg/dL Magnesium Level 1.80 1.80-2.40 mg/dL Total Bilirubin 0.3 0.2-1.0 mg/dL Aspartate Amino Transf (AST/SGOT) 15 10-37 U/L Alanine Aminotransferase (ALT/SGPT) 14 12-78 U/L Alkaline Phosphatase 68 50-136 U/L Troponin I High Sensitivity < 4 L 4-50 ng/L Total Protein 6.9 6.0-8.3 g/dL Albumin 3.5 3.5-5.0 g/dL Thyroid Stimulating Hormone (TSH) 0.35 L 0.36-3.74 uIU/mL Urine Color LIGHT-YELLOW YELLOW Urine Appearance CLEAR CLEAR Urine pH 5.5 5.0-8.0 Urine Specific [place] 1.018 1.001-1.031 Urine Protein NEGATIVE NEGATIVE mg/dL Urine Glucose (UA) NEGATIVE NEGATIVE mg/dL Urine Ketones NEGATIVE NEGATIVE mg/dL Urine Occult Blood NEGATIVE NEGATIVE Urine Nitrate NEGATIVE NEGATIVE Urine Bilirubin NEGATIVE NEGATIVE mg/dL Urine Urobilinogen 0.2 0.2-1.0 mg/dL Urine Leukocyte Esterase NEGATIVE NEGATIVE Justine/uL Segmented Neutrophils % 54 40-70 % Band Neutrophils % 1 0-2 % Lymphocytes % (Manual) 40 22-44 % Monocytes % (Manual) 5 2-9 % Differential Comment MANUAL DIFFERENTIAL White Cell Morphology Comment CONSISTENT W/DIFF Platelet Morphology Comment ADEQUATE Red Blood Cell Morphology ANISO 1+ Prothrombin Time 10.9 9.6-11.6 SEC Prothromb Time International Ratio 1.03 0.85-1.15 Activated Partial Thromboplast Time 30.4 26.3-35.5 SEC Hemoglobin A1c 5.3 4.0-6.0 % Estimated Average Glucose (eAG) 105 70-126 mg/dL Total Creatine Kinase 167 # 21-232 U/L B-Type Natriuretic Peptide 22 0-100 pg/mL Triglycerides Level 163 30-200 mg/dL Cholesterol Level 169 <200 mg/dL LDL Cholesterol 96 0-99 mg/dL HDL Cholesterol 53 35-85 mg/dL Whole Blood Glucose 112 H 70-110 MG/DL Current Medications Medications (Trade) Dose Ordered Sig/Bal Route PRN Reason Start Time Stop Time Status Last Admin Dose Admin Apixaban (EliquIS) 5 mg BID PO 12/19/24 09:00 01/18/25 08:59 12/19/24 08:49 5 MG Ceftriaxone Sodium (ROCEphine 1G INJ) 1 gm ONCE IVPB 12/18/24 17:00 12/18/24 21:00 DC 12/18/24 17:18 1 GM Dexamethasone Sodium Phosphate (dexaMETHasone 4MG/ML 1ML VIAL) 4 mg ONCE IV 12/18/24 17:00 12/18/24 21:00 DC 12/18/24 17:18 4 MG Famotidine (Pepcid 20mg Vial) 20 mg BID IV 12/19/24 09:00 01/18/25 08:59 12/19/24 08:49 20 MG Magnesium Sulfate 50 ml @ 0 mls/hr PROTOCOL PRN IV OTHER [SEE ORDER COMMENTS] 12/18/24 22:00 01/17/25 21:59 12/19/24 05:23 25 MLS/HR Meclizine HCl (ANTIvert 25 mg) 25 mg ONCE PO 12/18/24 17:00 12/18/24 21:00 DC 12/18/24 17:18 25 MG Ondansetron HCl (zoFRAN 4MG INJ) 4 mg Q6H PRN IV NAUSEA/VOMITING 12/18/24 22:00 01/17/25 21:59 Potassium Chloride 100 ml @ 50 mls/hr AD PRN IV POTASSIUM PROTOCOL 12/18/24 22:00 01/17/25 21:59 Sodium Chloride 1,000 ml @ 0 mls/hr ONCE IV 12/18/24 17:00 12/18/24 21:00 DC 12/18/24 17:18 1,000 MLS/HR Sodium Chloride 1,000 ml @ 75 mls/hr [id number] IV 12/18/24 22:00 01/17/25 21:59 12/18/24 22:15 75 MLS/HR DIAGNOSTICS / RADIOLOGY: [ ] ASSESSMENT: Possible benign paroxysmal positional vertigo POA Stroke mimic symptoms POA Acute ischemic stroke POA History of atrial fibrillation on Eliquis POA History of hyperlipidemia POA History of renal stones POA History of recent stroke POA PLAN: Remains admitted to the PCU Continue gambling monitor Patient with a history of ischemic stroke secondary to atrial fibrillation, continue Eliquis Scheduled for brain MRI today, results reviewed, unremarkable NEURO: Minimize central acting medications as possible. Fall Precautions. Well lighted room through the day and minimize interruptions through the night to prevent acute delirium. PULMONARY: Supplemental 02 as needed BiPAP as necessary, for respiratory distress Titrate Fio2 to keep Spo2 > or = 90% DuoNebs and CPT as needed IS hourly while awake for pulmonary hygiene prn Out of bed to chair as tolerated Maintain aspiration precautions at all times CARDIOVASCULAR: Follow hemodynamics. Vital signs per facility protocol GI & NUTRITION: Continue nutritional support Aspirations precautions Prokinetic agents and laxatives as needed KIDNEYS & ELECTROLYTES: Strict monitoring of intake and output Daily weights Avoid nephrotoxic agents Monitor electrolytes and replace as needed Goal urine output of 30mL/hr or 0.5mL/kg/hr Medications to be dosed according to renal function. Avoid contrast if possible ENDOCRINE: Maintain blood glucose between 100-180 at all times. Insulin sliding scale for blood glucose management Hypoglycemia and hyperglycemia protocol in place INFECTIOUS DISEASE: Trend temperature, WBC and procalcitonin level Follow cultures, deescalate antibiotics as soon as possible. Panculture if new onset fever HEMATOLOGY & COAGULATION: Monitor H&H. Keep Hgb > 7 Transfuse 1 unit of PRBC for Hgb < 7 Transfuse 1 pack of platelets of platelets < 20, 000 Watch for any signs and symptoms of bleeding SKIN: Pressure ulcer prevention per facility protocol Specialty mattress as needed ORTHO/REHAB Continue PT/OT PRN: MEDICATIONS Tylenol 650 mg po every 4 hrs for fever zofran 4 mg IV every 6 hrs for n/v Hydralazine 5 mg IV every 4 hrs systolic pressure > 160 bowel regiment: lactulose 20 gm PO BID PRN constipation Supportive measures: Continue GI and DVT prophylaxis Disposition: Pending improvement in clinical condition All questions answered time spent: > 35 min GREGG BAEZ MD December 19, 2024 09:42
[2024-12-19 09:45] VITALS: O2SAT 99
--- NOTE | 2024-12-19 10:04 | NUR ---
DCP: HOME Pt lives alone in a loft apt. Denies issues affording rent, utilities and food a this time, works at [employer]. Able to complete all ADLS, no DME or in home care services. PCP is Ziggy Johnson and uses [facility]. Denies dc needs and will return home at la Addendum: 12/19/24 at 1010 by JEIMY HANNAH SS Amended: Links added.
[2024-12-19] MEDS: diazePAM 5 MG/ML 2 ML SYG IVP ONE ×2 (11:33→11:35)
[2024-12-19 12:00] VITALS: BP 140/85; PULSE 59; RESP 17; TEMP 97.9
--- NOTE | 2024-12-19 12:55 | HMCIMG ---
MR BRAIN WO CON HISTORY: Dizziness COMPARISON: None TECHNIQUE: MRI of the brain was performed utilizing multiple pulse sequences in axial, coronal and sagittal planes. Patient was not given contrast through intravenous route. FINDINGS: The ventricles and extraventricular CSF spaces are nondilated for patient's age. There is no midline shift, mass effect or herniation. No subacute hemorrhage is seen. No MR evidence of acute infarct is seen in the diffusion weighted images. Cerebellar tonsils are in normal position. No evidence of mucoperiosteal thickening is seen of the visualized paranasal sinuses. No MR evidence of a mass lesion is seen in this noncontrast study. IMPRESSION: 1. No MR evidence of acute infarct is seen in the diffusion weighted images.
[2024-12-19] MEDS: cefTRIAXone 1G VIAL IVPB SCH (13:10)
[2024-12-19] MEDS ORDERED: ATOR20TA65 PO (14:27)
[2024-12-19] MEDS ORDERED: AMLO-257 PO (14:27)
[2024-12-19] MEDS ORDERED: ONDA-243 PO (14:27)
[2024-12-19] MEDS ORDERED: MECL-226 PO (14:27)
--- NOTE | 2024-12-19 14:29 | DS ---
Discharge Summary Hospital Course Summary: This is a 59-year-old female with past medical history of heart disease, stroke,hyperlipidemia and renal stone who presented to the Ed for complaints of dizziness which started 2 days ago. Because of dizziness, she hit the right forehead on a wall, patient taking Eliquis for atrial fibrillation, prescribed on her recent hospitalization at [facility]. Patient stated she had a stroke 3 weeks ago ,she developed left sided weakness with slurred speech and was confined at [facility] for a week and was discharged on Wednesday12/12/2024. Seen and examined patient in the ER,awake,alert and coherent.Patient states she still feels dizzy and dizziness is being triggered with sudden head movement associated with nausea but no vomiting. In the emergency room Latest vital signs temperature 98.4, heart rate 59, blood pressure 147/80 saturation 98% on room air. Labs: WBC 2.7 neutrophils 1.3 the rest of CBC results are unremarkable. Sodium 143, BUN 19, creatinine 0.8, GFR 84, glucose 96, troponin less than four BNP 22. Urinalysis is normal. ECG result revealed sinus rhythm heart rate 63 with low voltage precordial leads. Chest x-ray result is normal. CT head without contrast result is unremarkable. While in the ER ,a teleneurology was consulted and evaluated the patient in the ER per ER physician and patient had an NIHS score of 3 with an impression of Vertigo,Ischemic stroke and stroke mimic and recommended to do MRI brain to rule out stroke. 12/19 patient remains hemodynamically stable, BP 157/82 afebrile, saturating normal on room air, discussed with the RN, scheduled for brain MRI today. Back in the room from having MRI of the brain, reviewed, no acute findings, discussed with the patient. Plan for the patient to be discharged home today. 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 Home Medications: Reported Medications Apixaban (Eliquis) 5 Mg Tablet, 5 MG PO BID, TAB 12/19/24 Discontinued Scripts Acetaminophen with Codeine (Acetaminophen-Cod #3 Tablet) 1 Each Tablet, 1 TAB PO TID for 5 Days, #10 TAB Prov:KAVITHA SANABRIA 02/03/21 Prednisone (Prednisone) 20 Mg Tablet, 20 MG PO DAILY for 5 Days, #5 TAB Prov:TOR GUILLEN Jr., MD 08/24/18 Levofloxacin (Levaquin) 500 Mg Tablet, 500 MG PO DAILY for 10 Days, #10 TAB Prov:TOR GUILLEN Jr., MD 08/24/18 Time spent arranging discharge: 31-60 minutes GREGG BAEZ MD December 19, 2024 14:29
--- NOTE | 2024-12-19 17:45 | NUR ---
SPEECH NOTE: IN[employer] L[employer]ATOR arrived to patient's room; however, as per nurse Gini, patient already discharged from facility. services not rendered. Addendum: 12/19/[address] Amended: Links added.
--- NOTE | 2024-12-19 17:52 | NUR ---
PT attempted eval but patient was already going home per nurse. PT not rendered.
[2024-12-19] MEDS ORDERED: atorVAStatin 20 MG TABLET PO SCH (21:00)
== END 2024-12-19 15:32 | disposition home or self-care (01) ==
LOC: EDH 13:31 → EDHIP 21:43 → INTOOBSV 21:43 → 2DH 12-19 00:22
PROVIDERS: ADMIT Internal Medicine; ATTEND Internal Medicine
DX: I63.9 Cerebral infarction, unspecified (principal); J32.9 Chronic sinusitis, unspecified; E78.5 Hyperlipidemia, unspecified; I48.91 Unspecified atrial fibrillation; I51.9 Heart disease, unspecified; Z90.710 Acquired absence of both cervix and uterus; Z79.899 Other long term (current) drug therapy
CPT/HCPCS: 99285; 70551; 96365; 70450; 71045; 96375 ×2; 80061; 83036; 82550; 83735 ×2; 84484 ×2; 80048; 83880; 85025; 85610; 85730; 82948; 82306; 81003; 36415; 93005; 96367; 96376; 85651; 80050; J1100; J7030; J0696 ×2; J3475; J3490; J3360; 80053; 84443; G0378